=== PATIENT | male | born 1950 | race Caucasian/White ===

== ENCOUNTER 2025-02-18 15:01 | Outpatient (AMB) | payer OTHER, SELFPAY ==
--- OUTSIDE RECORDS SUMMARY | 2025-02-18 17:32 | XMS_ITS | Patient Health Record ---
Author Organization [facility] Address [address] [place] [address] Care Team Providers Care Advertising Statistical Clerk Name Role Phone Luan Crisostomo MD Primary Care Provider Morris Lopez Unavailable [phone] Reason For Referral No Information Medications Medication SIG (Take, Route, Fr equency, Duration) Notes Start Date End Date Status Multivitamins as directed Orally Active Simvastatin 20 MG 1 tablet in the even ing Orally Once a day; Duration: 30 day(s) Active Vitamin D3 2000 units Active Alfuzosin HCl 10 MG 1 tablet immediately after the same meal Orally Once a day; Duration: 30 day(s) Active aspirin baby 81 mg as directed Active CeleBREX 200 MG 1 capsule Orally Onc e a day; Duration: 30 day(s) Active Fish Oil 1000 MG 1 capsule Orally Onc e a day; Duration: 30 day(s) Active Physical Therapy . . . 2-3x/week; Durat ion: 3-4 weeks 06/28/2012 Active Advil 200 MG 1 tablet as needed O rally every 6 hrs 06/04/2012 Active Problems Problem Type SNOMED Code ICD Code Onset Dates Problem Status W/U Status Risk Notes Problem Bursitis (58005914) Bursitis (727.3) Active confirmed Problem Myositis (52064033) Myositis (729.1) Active confirmed Problem Pain in limb (93042095) Pain in Limb (729.5) Active confirmed Problem Plantar fasciitis (583614825) Plantar Fasciitis (728.71) Active confirmed Plan Of Treatment Pending Test Test Name Order Date X ray : Foot, right 2V 06/04/2012 [id number] TENDON SHEATH/LIGAMENT 0 06/04/2012 Insurance Providers Payer Name Payer Address Payer Phone Subscriber Number Group Number Insured Name Patient Relationship to Insured Coverage Start Date Coverage End Date [facility] [address] [facility] [place]Z [place] [id number] Micki Perez i Spouse - patient is the spouse of the insured Medical (General) History Medical History History ICD Code angina back, hip, knee pain chicken pox measles mumps Surgical History Surgery Date(Month/Year) knee surgery, left 2007 knee surgery, right 2007
--- OUTSIDE RECORDS SUMMARY | 2025-02-18 17:32 | XMS_ITS | Clinical Summary ---
Author Organization [address] [place] [address] Address [address] [place] [address] Phone Care Team Providers Care Assistant Floor Covering Printer Name Role Phone Nikolas Murray KRYSTLE Primary Care Provider Allergies No known active allergies Medications finasteride (PROSCAR) 5 mg tablet Take 5 mg by mouth daily. 1 Active cholecalciferol (VITAMIN D-3) 50 mcg (2,000 unit) tablet Take 1 Tablet by mouth daily. Active celecoxib (CeleBREX) 200 mg capsule Take 1 Capsule by mouth 2 times daily. 1 Active atorvastatin (LIPITOR) 10 mg tablet Take 1 Tablet by mouth daily. 4 Active aspirin 81 mg EC tablet Take 81 mg by mouth daily. Active amoxicillin (AMOXIL) 500 mg capsule Take 4 capsules by mouth 1 hour prior to dental procedure 0 Active alfuzosin (UROXATRAL) 10 mg 24 hr tablet 1 tablet (10 mg total) 1 (one) time each day. 1 Active albuterol HFA (PROAIR HFA ; PROVENTIL HFA ; VENTOLIN HFA) 90 mcg/actuation inhaler 1 puff if needed. 1 Active ELDERBERRY FRUIT ORAL Take 1 tablet by mouth 1 (one) time each day. Active GARLIC ORAL Take 1 tablet by mouth 1 (one) time each day. Active omega 0-pac-mot-fish oil (Fish OiL) 1,000 (120-180) mg capsule 1 capsule (1,000 mg total) 1 (one) time each day. Active TURMERIC ORAL Take 1,000 mg by mouth 1 (one) time each day. 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 Has some exertional dyspnea symptoms but was diagnosed with asthma and is not on a regular inhaler he will check up with his primary care physician for further treatment. Patient had no coronary artery disease at the time of his catheterization. He is lipids are managed on medical management at this time with fairly decent control. At this point he needs to continue endocarditis prophylaxis. Will echo in a year and follow-up in a year Assessment & Plan (08/27/2024 12:50 PM EDT): Status post bioprosthetic aortic valve. Last echocardiogram shows normal function normal systolic function. No perivalvular leak no valvular stenosis. Patient has endocarditis prophylaxis available and understands his need for use. Patient also has some mild dilatation of the ascending aorta we will repeat an echocardiogram to measure that in the next year. Otherwise continue present medical therapy risk factor modification and endocarditis prophylaxis . Patient does have complaints of postnasal drip chest x-ray was clear I suspect that he needs to try some Claritin and some Flonase his symptoms seem consistent with postnasal drip his lungs are clear his chest x-ray is clear. 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 NUMERICAL CONTROL OXTJ >1MO PO TOTAL KNEE ARTHROPLASTY PROCEDURE: ID ARTHRP KNE CONDYLE&PLATU MEDIAL&LAT COMPARTMENTS Family History Relation Name Status Comments Father Mother Social History Tobacco Use Types Packs/Day Years Used Date Smoking Tobacco: Former Cigarettes Smokeless Tobacco: Never Tobacco Cessation:Counseling Given: Not Answered Alcohol Use Standard Drinks/Week Comments Yes 1 (1 standard drink = 0.6 oz pur e alcohol) Sex and Gender Information Value Date Recorded Sex Assigned at Male 10/23/2024 10:33 AM EDT Legal Sex Male 7:04 AM EST Gender Identity Male 10/23/2024 10:33 AM EDT Sexual Orientation Straight 10/23/2024 10 :33 AM EDT Obstetrics History Last Filed Vital Signs Vital Sign Reading Time Taken Comments Blood Pressure 128/84 10/21/2024 10:40 AM EDT Pulse 82 10/21/2024 10:40 AM EDT Temperature - - Respiratory Rate - - Oxygen Saturation 97% 08/27/2024 10:33 AM EDT Inhaled Oxygen Concentration - - Weight 117 kg (258 lb) 10/21/2024 10:40 AM EDT Height 172.7 cm (5' 8 ) 10/21/2024 10:40 AM EDT Body Mass Index 39.23 10/21/2024 10:40 AM EDT Plan of Treatment Upcoming Encounters Date Type Department Care Team (Late st Contact Info) Description 06/01/2025 9:00 AM EST Ancillary Procedure [facility] - [address] [place] [address] Health Maintenance Due Date Last Done Comments Pneumococcal Vaccine: 50+ Years (1 of 2 - PCV) [birth year]01/1969 RSV Immunization Adult Patients (1 - Risk 60-74 years 1-dose series) 2012 Abdominal Aortic Aneurysm (AAA) Screen 04/30/2022 Cholesterol Screening (Lipid Panel) 04/30/2022 Colorectal Cancer Screening: Colonoscopy 04/30/2022 Falls Risk Assessment 04/30/2022 Hepatitis C Screening 04/30/2022 Medicare Annual Wellness Visit 04/30/2022 Social Influencers of Health Screening 04/30/2022 Depression Screening 05/28/2024 COVID-19 Vaccine ( - season) 2025 09/05/2020, 08/15/2020 Influenza Vaccine (#1) 2025 , 04/28/2023, 04/13/2022, Additional history exists DTaP,Tdap,and Td Vaccines (2 - Td or Tdap) 09/16/2033 09/17/2023 Zoster Vaccines Completed 07/11/2018, 11/26, 2012 HIB Vaccines Aged Out No longer eligi ble based on patient's age to complete this topic HPV Vaccines Aged Out No longer eligi ble based on patient's age to complete this topic Hepatitis A Vaccines Aged Out No long er eligible based on patient's age to complete this topic Hepatitis B Vaccines Aged Out No long er eligible based on patient's age to complete this topic IPV Vaccines Aged Out No longer eligi ble based on patient's age to complete this topic MMR Vaccines Aged Out No longer eligi ble based on patient's age to complete this topic Meningococcal ACWY Vaccine Aged Out N o longer eligible based on patient's age to complete this topic Meningococcal B Vaccine Aged Out No l onger eligible based on patient's age to complete this topic RSV Immunization Patients Under 20 months Aged Out No longer eligible based on patient's age to complete this topic Varicella Vaccines Aged Out No longer eligible based on patient's age to complete this topic Procedures Procedure Name Priority Date/Time Associated Diagnosis Comments ECG 12-LEAD Routine 01/05/2025 7:47 AM EDT Stenosis of prosthetic aortic valve, subsequent encounter from Last 3 Months Results * ECG 12 lead (01/05/2025 7:47 AM EDT) 08/27/2024 10:2 8 AM EDT us Kimo Washburn MD ECG ORDERABLES Final Result GEMUSE from Last 3 Months Insurance [employer] Care Teams Assistant Floor Covering Printer Relationship Specialty Start Date End Date Nikolas Murray FNP [address] [facility] [address] [place], [place] [phone] PCP - General 05/29/23
== END 2025-02-18 15:03 | disposition home or self-care (01) ==
PROVIDERS: PCP Internal Medicine; Visit Provider Registered Nurse Emergency
DX: J30.89 Other allergic rhinitis (principal)
CPT/HCPCS: 95117; 95165

== ENCOUNTER 2025-04-27 16:14 | Outpatient (AMB) | payer MEDICARE, SELFPAY ==
--- OUTSIDE RECORDS SUMMARY | 2025-04-27 18:42 | XMS_ITS | Clinical Summary ---
Author Organization [address] [place] [address] Address [address] [place] [address] Phone Care Team Providers Care Blending Kettle Tender Name Role Phone Nikolas Murray KRYSTLE Primary [...] 1 (one) time each day. 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 OXTJ >1MO PO TOTAL KNEE ARTHROPLASTY PROCEDURE: [place] ARTHRP KNE CONDYLE&PLATU MEDIAL&LAT COMPARTMENTS Family History [...] Description 06/01/2025 9:00 AM EST Ancillary Procedure [facility] - [facility] [address] [place] [address] Health Maintenance Due Date Last Done Comments Colorectal Cancer Screening: Colonoscopy 1950 Pneumococcal Vaccine: 50+ Years (1 of 2 - PCV) 12/01/1971 RSV Immunization Adult Patients (1 - Risk 50-74 years 1-dose series) 2002 Abdominal Aortic Aneurysm (AAA) Screen 04/30/2022 Cholesterol Screening (Lipid Panel) 04/30/2022 Falls Risk Assessment 04/30/2022 Hepatitis C Screening 04/30/2022 Medicare Annual Wellness Visit 04/30/2022 Social Influencers of Health Screening 04/30/2022 Depression Screening 05/28/2024 COVID-19 Vaccine (3 - season) 2025 09/05/2020, 08/15/2020 Influenza Vaccine [...] on patient's age to complete this topic Insurance [employer] Care Teams Blending Kettle Tender Relationship Specialty Start Date End Date Nikolas Murray FNP [address] [facility] [address] [place] [address] PCP - General 05/29/23
--- OUTSIDE RECORDS SUMMARY | 2025-04-27 18:42 | XMS_ITS | Data Portability ---
Author Organization [place] - [facility], [facility] Address [address] [place] [address] Care Team Providers Care Groundskeeping Maintenance Name Role Phone ILIA SEN Primary Care Provider [phone] Assessment No assessment recorded. Plan of Treatment Reminders Order Date Submit Date Provider Last Modified By Organization Details Last Modified Time Details Appointments NEW PATIENT 15 2024 09:15A M Luis Causey MD Not available Not available Not available Lab None recorded . Referral None recorded . Procedures None recorded . Surgeries None recorded . Imaging XR, shoulder , 2 or more view 2023 024 [email or web address] Not available 09/06/2023 14:04:39 Medication Orders None recorded . Patient TargetsNo targets recorded. Patient InstructionsNo instructions recorded. Reason for Referral None Reported. Results Created Date Observation Date Name Description Value Unit Range Abnormal Flag Note LastModifiedBy Organization Detail LastModifiedTime 10/29/19 24 10/29/2023 elect romyo gram + nerve condu ction study No observ ation record ed. [email or web address] [facility]) [address], [address], 10/30/2023 09:28:17 01/25/20 24 12/30/2019 imagi ng/di agnos tic resul t No observ ation record ed. [email or web address] Not Available 12/28 09:15:59 Result Notes None recorded. Problems Name Problem SNOMED Code Status Onset Date Resolution Date Notes Provider Name and Address Organization Details Recorded Time No complaint s 029614908 Active Status: 'I'; Not Available [facility] 09:24:36 Strain of rotator cuff of shoulder 253908695 Active 2015 Problem Code: S46.011A ; Problem Code Type: ICD-10; Status: 'A'; Not Available Replaced by [facility] 4 11:58:03 Trigger finger of left hand 113484946832 67450 Active 2017 Problem Code: M65.342; Problem Code Type: ICD-10; Status: 'A'; Not Available Replaced by [facility] 4 11:58:03 Trigger thumb of left hand 552025448461 107 Active 2019 Problem Code: M65.312; Problem Code Type: ICD-10; Status: 'A'; Not Available Replaced by [facility] 4 11:58:03 Problem Notes None recorded. Procedures Surgical History Date Name Laterality Status Provider Name and Address Organization Details Recorded Time 4 [facility] Hand Inj completed Luis Causey MD [address], [place], [address], [facility] 05/07/2024 15:04:04 4 Sports Shoulder Bilateral completed Tee Jenkins PA-C [address], [place], [address], [facility] 09/05/2023 16:42:03 Imaging Results None recorded. Procedure Notes None recorded. Medical Equipment None Reported. Allergies No known drug allergies Medications Name Sig Start Date Stop Date Status Note LastModified by Organization Details LastModified Time celecoxib 200 mg capsule TAKE 1 CAPSULE BY MOUTH TWICE A DAY active Not Available Not Available No t Available amoxicillin 500 mg capsule TAKE 4 CAPSULES BY MOUTH 1 HOUR PRIOR TO DENTAL PROCEDURE S active Not Available Not Available No t Available atorvastati n 10 mg tablet TAKE 1 TABLET BY MOUTH EVERY DAY active Not Available Not Available No t Available azithromyci n 250 mg tablet TAKE 2 TABLETS BY MOUTH TODAY, THEN TAKE 1 TABLET DAILY FOR 4 DAYS 09/04 completed Not Available Not Available Not Available prednisone 20 mg tablet DAY 1-2: 3 TABS BY MOUTH DAILY DAY 3-6: 2 TABS BY MOUTH DAILY DAY 7-8: 1 TAB BY MOUTH DAILY active Not Available Not Available No t Available tramadol 50 mg tablet TAKE 1 TABLET BY MOUTH EVERY 12 HOURS NEEDED NEEDED FOR PAIN active Not Available Not Available No t Available sildenafil 100 mg tablet TAKE 1 TABLET BY MOUTH DAILY X28 DAYS 1 HOUR BEFORE SEXUAL ACTIVITY active Not Available Not Available No t Available albuterol sulfate HFA 90 mcg/actuati on aerosol inhaler 2 PUFFS INHALATIO N EVERY 4 HOURS,X30 DAYS NEEDED FOR WHEEZING active Not Available Not Available No t Available finasteride 5 mg tablet TAKE 1 TABLET BY MOUTH EVERY DAY active Not Available Not Available No t Available oxycodone 5 mg tablet TAKE 1 EVERY 4 TO 6 HOURS NEEDED active Not Available Not Available No t Available alfuzosin ER 10 mg tablet,exte nded release 24 hr TAKE 1 TABLET BY MOUTH EVERYDAY AT BEDTIME active Not Available Not Available No t Available Fish Oil active Not Available Not Avai lable Not Available Pulmicort active Not Available Not Anne ilable Not Available garlic extract active Not Available Not Available Not Available tadalafil active Not Available Not Anne ilable Not Available oxycodone HCl-oxycodo ne-ASA as directed 1 Q 4-[address] WHILE ON THIS MEDICATIO N 02/02 completed Statu s: 'Disc ontin ued'; Not Available Not Available Not Available D3-2000 active Not Available Not Avail able Not Available Adult Aspirin Regimen 81 mg tablet,antonia yed release Take 1 tablet every day by oral route. active Not Available Not Available No t Available turmeric active Not Available Not Avai lable Not Available Vitals Date Recorded Body height Body mass index (BMI) Body weight Provider Name and Address Organization Details Last Updated DateTime 09/05/2023 172.72 cm 38.8 kg/m2 916975.05 g YULIANA MURO [facility] 09/05/2023 09:37:13 Date Recorded Body height Body mass index (BMI) Body weight Provider Name and Address Organization Details Last Updated DateTime 12/12/2023 172.72 cm 38.8 kg/m2 278270.05 g JACQUELINE RECINOS [facility] 12/12/2023 08:47:42 Date Recorded Body height Body mass index (BMI) Body weight Provider Name and Address Organization Details Last Updated DateTime 05/07/2024 172.72 cm 38 kg/m2 547535.09 g laly lopez [facility] 05/07/2024 14:17:26 Social History None recorded. Functional Status None recorded. Mental Status None recorded. Family History Nothing Reported. Medical History No medical history recorded. Past Encounters Encounter ID Performer Location Encounter Start Date Encounter Closed Date Diagnosis/Indication Diagnosis SNOMED-CT Code Diagnosis ICD10 Code Diagnosis IMO Codes Diagnosis Note [id number] Tee Jenkins PA-C [facility] [address]nd floor [address] [place] [address] 09/05/2023 09:24:43 09/06/2023 14:04:39 Bilateral shoulder joint pain 7375629936 3730391 M25.511 M25.512 Bilateral shoulder osteoarthritis 2460747398 48203 M19.011 M19.778 [id number] Luis Causey MD [facility] [address]st Floor [address] [address] 12/12/2023 08:41:06 12/27/2023 10:30:07 Bilateral carpal tunnel syndrome [id number] 6048328 G56.03 [id number] Luis Causey MD [facility] [address]st Floor [address] [facility] [place] [address] 05/07/2024 14:09:19 06/04/2024 13:46:08 Arthritis of first carpometacarpal joint of right hand 5715965345 944669 M18.11 62720912 Arthritis of first carpometacarpal joint of left hand 0221839347 281568 M18.12 [id number] Health Concerns Section Related Observation LastModified by Organization Detai ls LastModified Time None Recorded Concern Status LastModified by Organization Details LastModified Time None Recorded Advance Directives Directive None Recorded Payers Insurance Date Sequence Insurance Name Policy Number Policy Fraser Covered Member ID Fraser Member ID Guarantor Name 04/15/2025 1 [facility] (MEDICARE REPLACEMENT/A DVANTAGE - PPO) [id number] Ravi Sherman [id number] Ravi Sherman 04/21/2024 2 [facility] - MEDICARE ADVANTAGE PLAN (MEDICARE REPLACEMENT HMO) [id number] Ravi Sherman [id number] Ravi Sherman Notes Date Note Type Note Provider Name and Address Organization Details Recorded Time 09/05/2023 text/html I am seeing the patient today under the supervision of Dr. Magdaleno who was available but who did not see the patient.HPI: Ravi is a 72-year-old male returns for evaluation now having bilateral shoulder pain. Previous rotator cuff repair right shoulder by Dr. Magdaleno 2016. No new injury. He is very physically active. 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 He presents for orthopedic evaluation with complaints of pain in both shouldersPast family, medical, social history and review of systems has been reviewed, updated and is located in the patient s chart.Examination:The patient is well appearing and in no apparent distress. Alert and oriented x3. Gait is symmetric. Both shoulders with reduced range of motion. End range discomfort. Clicking and grinding both shoulders. Rotator cuff weakness 4/5 bilaterally worse on the right than left.Peripheral, vascular, lymphatic examination, skin, neurological, coordination, reflexes, sensation are within normal limits.X-rays ordered, obtained and reviewed today at [facility] 4 views of both shoulders were individually reviewed today. There is evidence of posttraumatic arthritis of bilateral shoulders.Impression: Posttraumatic arthritis bilateral shoulders, possible rotator cuff disease and rotator cuff tissue effusion pain.Plan: We had the opportunity to review his radiographic findings. Treatment options discussed. Patient is not interested in surgical management at this time. I recommended cortisone injection and nonsurgical care. He agrees to this. Patient tolerated injection well. He may repeat injection in the future as needed. Tee Jenkins PA-C [address] [facility] [address], [place], [address], [facility] 09/05/2023 16:43:12 12/12/2023 text/html ROS as noted in the HPI Diagnosis: 1. Bilateral carpal tunnel syndrome2. Bilateral first CMC osteoarthritis status post corticosteroid injectionsThe patient presents at my request. Since his last visit he underwent EMG/NCS of his bilateral upper extremities. He is describing numbness, tingling and pain worse on the left than the right.Past family, medical, social history and review of systems has been reviewed, updated and is located in the patient s chart.Examination: Healthy appearing patient in no apparent distress. Alert and oriented. He has symmetric range of motion of his bilateral wrists and digits. Provocative testing of his bilateral wrists reveals positive first CMC grind and compression test. Carpal tunnel compression test is positive bilaterally. No atrophy in either upper extremity. Brisk capillary refill in all digitsI have reviewed an EMG/NCS of his bilateral upper extremities. The findings were consistent with bilateral carpal tunnel syndromePlan:The patient and I discussed the situation at length. The patient's history, physical findings and electrodiagnostic studies are consistent with bilateral carpal tunnel syndrome. I described the nature of carpal tunnel syndrome and treatment options. The patient would like to proceed with a left carpal tunnel release and a right carpal tunnel release 2 weeks later. We discussed the nature of the surgery and potential risks including infection, injury to blood vessels, tendons, nerves, incomplete relief of numbness and palmar tenderness. All of the patient's questions were answered. We will perform the procedure at the patient's earliest possible convenience. Luis Causey MD [address] [place] [address], [place], [address], [facility] 12/12/2023 14:59:45 05/07/2024 text/html ROS as noted in the HPI DIAGNOSIS: Bilateral 1st CMC arthritis status post corticosteroid injection.HPI: The patient returns in followup today. The patient describes approximately several months relief with their last injection. Pain has returned and it is sharp and severe.PFMSH and ROS has been reviewed, updated, and is located in the patient's chart.PHYSICAL EXAMINATION: On exam, the patient is in no apparent distress, and is alert and oriented. The patient has symmetric range of motion of bilateral wrists and digits. Provocative testing of the right wrist reveals a positive first CMC grind and compression test. Provocative testing of the left wrist feels a positive first CMC grind and compression test The patient has no atrophy of either upper extremity.The patient and I discussed the situation at length. Options include a repeat injection or surgical intervention. We discussed the nature of the surgery and its potential risks including infection, injury to blood vessels, tendons, nerves, failure of the procedure and stiffness of the thumb. The patient would like to proceed with a repeat injection. After sterile prep of the area, the soft tissue overlying the bilateral 1st CMC joints were infiltrated with 2cc of 1% plain lidocaine. After five minutes and sterile prep of the area, the bilateral 1st CMC joints were injected with 6 mg Celestone and 1cc of 1% plain lidocaine. Tolerated this well. The patient will follow up with me by phone in a month's time, sooner if there are any concerns.Electronicall y signed: Luis Causey M.D. Luis Causey MD [address] [place] [address], [place], [address], [facility] 05/07/2024 15:05:09
--- OUTSIDE RECORDS SUMMARY | 2025-04-27 18:42 | XMS_ITS | Data Portability ---
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 He will continue to monitor things and I will have him return in 6 months just for a evaluation. He understands that these viral lesions can return at some point in the future. [email or web address] Not available 01/11/2024 09:03:29 Plan of Treatment Reminders Order Date Submit Date Provider Last Modified By Organization Details Last Modified Time Details Appointments None record ed. Lab None record ed. Referral None record ed. Procedures None record ed. Surgeries None record ed. Imaging None record ed. Medication Orders None record ed. Patient TargetsNo targets recorded. Patient InstructionsNo instructions recorded. Reason for Referral None Reported. Results Created Date Observation Date Name Description Value Unit Range Abnormal Flag Note LastModifiedBy Organization Detail LastModifiedTime 01/16/2008/21/2023 imagi ng/di agnos tic resul t No observ ation record ed. [email or web address] Not Available 10:39:17 Result Notes None recorded. 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 Medical Equipment None Reported. Medications Name Sig Start Date Stop Date Status Note LastModified by Organization Details LastModified Time celecoxib 200 mg capsule active Medicati on ID: [id number] B rand Name: celecoxi b Send Method: E-Prescr ibed Sub s Allowed: subs OK Medic ationGen ericName : celecoxi b Not Available Not Available Not Available amoxicill in 500 mg capsule TAKE 4 CAPSULES BY MOUTH 1 HOUR PRIOR TO DENTAL PROCEDUR ES active Not Available Not Available No t Available atorvasta tin 10 mg tablet active Medicati on ID: [id number] B rand Name: atorvast atin Sen d Method: E-Prescr ibed Sub s Allowed: subs OK Medic ationGen ericName : atorvast atin Not Available Not Available Not Available azithromy yasmin 250 mg tablet TAKE 2 TABLETS BY MOUTH TODAY, THEN TAKE 1 TABLET DAILY FOR 4 DAYS active Not Available Not Available No t Available prednison e 20 mg tablet DAY 1-2: 3 TABS BY MOUTH DAILY DAY 3-6: 2 TABS BY MOUTH DAILY DAY 7-8: 1 TAB BY MOUTH DAILY 01/10 completed Not Available Not Available Not Available tramadol 50 mg tablet TAKE 1 TABLET BY MOUTH EVERY 12 HOURS NEEDED NEEDED FOR PAIN active Not Available Not Available No t Available sildenafi l 100 mg tablet TAKE 1 TABLET BY MOUTH DAILY X28 DAYS 1 HOUR BEFORE SEXUAL ACTIVITY active Not Available Not Available No t Available albuterol sulfate HFA 90 mcg/actua tion aerosol inhaler 2 PUFFS INHALATI ON EVERY 4 HOURS,X3 0 DAYS NEEDED FOR WHEEZING active Not Available Not Available No t Available finasteri de 5 mg tablet TAKE 1 TABLET BY MOUTH EVERY DAY active Not Available Not Available No t Available alfuzosin ER 10 mg tablet,ex tended release 24 hr Take 1 tablet every day by oral route. active Not Available Not Available No t Available tadalafil 20 mg/5 mL(4 mg/mL) oral suspensio n (pulmonar y hypertens ion) active Medicati on ID: [id number] B rand Name: tadalafi l (pulm. hyperten john) Se nd Method: E-Prescr ibed Sub s Allowed: subs OK Medic ationGen ericName : tadalafi l (pulm. hyperten john) Not Available Not Available Not Available Vitals None Recorded Social History None recorded. Functional Status None recorded. Mental Status None recorded. Family History Nothing Reported. Medical History No medical history recorded. Past Encounters Encounter ID Performer Location Encounter Start Date Encounter Closed Date Diagnosis/Indication Diagnosis SNOMED-CT Code Diagnosis ICD10 Code Diagnosis IMO Codes Diagnosis Note [id number] DELILAH GARCIA MD [facility] [address] [address] 01/11/2024 08:37:51 01/11/2024 09:10:57 History of neoplasm 714726718 Z85.9 Z86.005 Health Concerns Section Related Observation LastModified by Organization Detai ls LastModified Time None Recorded Concern Status LastModified by Organization Details LastModified Time None Recorded Advance Directives Directive None Recorded Payers Insurance Date Sequence Insurance Name Policy Number Policy Fraser Covered Member ID Fraser Member ID Guarantor Name 01/11/[address] [place] [address] (MEDICARE REPLACEMENT /ADVANTAGE - PPO) [id number] Ravi Sherman [id number] Ravi Sherman Notes Date Note Type Note Provider Name and Address Organization Details Recorded Time 01/11/2024 text/html Patient reports no further epistaxis and he has not noticed any papilloma along the nasal vestibule skin. Previously he noted some nodularity. 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 History of epistaxis which has resolved. He underwent excision and KTP lasertherapy. No recent bleeding.Mild nasal crusting but no obvious papilloma. Suggest saline and K-Y jelly. Follow-up in a few months or sooner if necessary. DELILAH RIVERA MD [address] [place] [address], [address], [place] - [facility] 01/11/2024 09:06:08
== END 2025-04-27 16:15 | disposition home or self-care (01) ==
LOC: HO.HMGAL 16:14
PROVIDERS: PCP Nurse Practitioner Family; Visit Provider Registered Nurse Emergency
DX: J30.89 Other allergic rhinitis (principal)
CPT/HCPCS: 95117; 95165